=== PATIENT | female | born 1990 | race Caucasian/White ===

== ENCOUNTER 2018-10-17 17:25 | Emergency (ER) | payer BC ==
[~2018-10-17] VITALS: Ht 167.6 cm; Wt 56.7 kg
--- NOTE | 2018-10-17 17:34 | NUR ---
PT BIBFRIEND FOR S/I, RERPORT TAKING "30 PILLS OF XANAX", PT TO BED 6, PT [id number], -SOB, NAD NOTED, PT ON MONITOR, VSS, S/I PRECAUTIONS INITIATED, PENDING MD AVILEZ
--- NOTE | 2018-10-17 17:46 | NUR ---
CALLED POISON CONTROL, WEATHERIZATION COORDINATOR STATES OBSERVE PT FOR MIN 4 HOURS, OBS FOR RESPIRATORY DEPRESSION, DRAW LABS TO CHECK FOR TYLENOL PRESENCE, DONT GIVE MEDS THAT CAN CAUSE SEIZURE.
[2018-10-17] MEDS ORDERED: ONDANSETRON HCL/PF 4 MG/2 ML VIAL ONE (17:55)
[2018-10-17 17:57] LABS: BASOPHILS % (AUTO) 0.3 % (0.0-2.0); EOSINOPHILS % (AUTO) 1.7 % (0.0-6.0); HEMATOCRIT 38 % (33-45); HEMOGLOBIN 13.1 g/dL (11.5-14.8); MEAN CORPUSCULAR HGB CONC 34 g/dl (31.0-36.0); MEAN CORPUSCULAR VOLUME 98 fL (82-100); MONOCYTES # (AUTO) 0.7 /CMM (0.1-1.30); NEUTROPHILS # (AUTO) 3.5 /CMM (1.8-8.9); PLATELET COUNT (AUTO) 242 /CMM (150-450); RED BLOOD CELL COUNT(AUTO) 3.92 MIL/uL (4.0-5.2); WHITE BLOOD COUNT (AUTO) 7.3 K/uL (4.3-11.0)
[2018-10-17] MEDS ORDERED: ONDANSETRON HCL/PF 4 MG/2 ML VIAL IVP ONE (18:00)
[2018-10-17] MEDS ORDERED: IV NS 0.9% 1,000 ML BAG IV ONE (18:00)
[2018-10-17 18:13] LABS: ACETAMINOPHEN < 10 ug/ml (10-30); ALANINE AMINOTRANSFERASE 20 U/L (12-78); ALBUMIN 3.7 g/dL (3.4-5.0); ALCOHOL, BLOOD 17 mg/dL (0-0); ALKALINE PHOSPHATASE 57 U/L (46-116); ASPARTATE AMINOTRANSFERASE 17 U/L (15-37); BILIRUBIN,DIRECT 0.1 mg/dL (0.0-0.2); BILIRUBIN,TOTAL 0.3 mg/dL (0.2-1.0); CARBON DIOXIDE 29 mmol/L (21-32); CHLORIDE 103 mmol/L (98-107); CREATININE 0.9 mg/dL (0.6-1.3); GLUCOSE 80 mg/dL (74-106); POTASSIUM 3.9 mmol/L (3.5-5.1); SALICYLATE 2.4 mg/dL (2.8-20.0); SODIUM SERUM 138 mmol/L (136-145); TOTAL PROTEIN, SERUM 7.2 g/dL (6.4-8.2); UREA NITROGEN, BLOOD 10 mg/dL (7-18)
--- NOTE | 2018-10-17 18:40 | NUR ---
RECREATION ESTABLISHMENT MANAGER STEVEN MACIEL 1HR
--- NOTE | 2018-10-17 19:01 | NUR ---
URINE COLLECTED AND SENT TO LAB
[2018-10-17 19:08] LABS: APPEARANCE,URINE Clear (CLEAR); BILIRUBIN,URINE Negative (NEGATIVE); BLOOD, URINE Negative Ery/uL (NEGATIVE); COLOR,URINE Yellow (YELLOW); KETONES,URINE Negative (NEGATIVE); LEUKOCYTE ESTERASE ,URINE Negative (NEGATIVE); NITRITE, URINE Negative (NEGATIVE); PH,URINE 5.5 (5.0-8.0); PROTEIN,URINE Negative (NEGATIVE); UGLUCOSE Negative (NEGATIVE); UROBILINOGEN,URINE 0.2 EU/dL (0.2)
--- NOTE | 2018-10-17 20:00 | NUR ---
PER [facility] AIDE, PT WILL BE ON OBSERVATION UNTIL AM, PT HAS FRIEND AT BEDSIDE. PER STEVEN, PT WILL NOT NEED A 1:1 SITTER. PT IN BED, SLEEPING, PT ON MONITOR, VSS, NAD NOTED, VITAL SIGNS UPDATED.
--- NOTE | 2018-10-17 22:23 | NUR ---
ENDORSED TO [facility] FOR BRANDI.
--- NOTE | 2018-10-18 01:11 | NUR ---
PT FRIEND ADVISED ME THAT HE HAS TO LEAVE. STEVEN PALOMO CALLED, MENTIONED THAT PATIENT IS NOT ON A HOLD. SHE WILL STAY HERE UNTIL THE AM WHEN HER PARENTS PICK HER UP. STEVEN PALOMO ALSO MENTIONS THAT PATIENT DOES NOT NEED A SITTER AT THIS TIME. AWARE.
--- NOTE | 2018-10-18 05:10 | NUR ---
Patient is resting comfortably in bed with eyes closed. Easily aroused. VSS.
--- NOTE | 2018-10-18 06:02 | NUR ---
patient given water. waiting for parents to come pick her up.
--- NOTE | 2018-10-18 06:44 | NUR ---
[facility] ON [address] TO [employer] SUPERVISOR PT. ETA 1100.
--- NOTE | 2018-10-18 08:50 | NUR ---
Patient discharged to home in stable condition. Written and verbal after care instructions given. Patient verbalizes understanding of instruction. Ambulatory- gait steady Home with [facility] [place]
[2018-10-18 08:51] VITALS: BP 110/65
== END 2018-10-18 08:53 | disposition home or self-care (01) ==
LOC: ER 17:27
DX: T14.91XA Suicide attempt, initial encounter (principal); T42.4X2A Poisoning by benzodiazepines, intentional self-harm, initial encounter; Y92.89 Other specified places as the place of occurrence of the external cause; Y93.89 Activity, other specified; Y99.8 Other external cause status
CPT/HCPCS: 36415; 80048; 80076; 80305; 80307; 80329; 81001; 84703; 85025; 96374; 99284; G0480; J2405; J7030; 81000-TC